=== PATIENT | female | born 1950 | race Caucasian/White ===

== ENCOUNTER 2016-11-22 12:40 | Emergency (ER) | payer OTHER ==
[~2016-11-22] VITALS: Ht 177.8 cm; Wt 89.1 kg
[2016-11-22 14:14] VITALS: BP 153/92
== END 2016-11-22 14:14 | disposition home or self-care (01) ==
LOC: EME 12:40
PROC: 0HCNXZZ Extirpation of Matter from Left Foot Skin, External Approach (ICD-10-PCS; principal; 2016-11-22)
DX: S91.342A Puncture wound with foreign body, left foot, initial encounter (principal); W22.8XXA Striking against or struck by other objects, initial encounter; W25.XXXA Contact with sharp glass, initial encounter; W45.8XXA Other foreign body or object entering through skin, initial encounter; Y93.E6 Activity, residential relocation
CPT/HCPCS: 73630; 99281; 99283

== ENCOUNTER 2017-04-14 22:39 | Emergency (ER) | payer OTHER ==
[~2017-04-14] VITALS: Ht 175.3 cm; Wt 89.0 kg
[2017-04-14 23:52] LABS: HEMATOCRIT 42.2 % (36.0-46.0); HEMOGLOBIN 14.3 G/DL (11.9-15.5); MCH 29.8 PG (29.0-34.0); MCHC 33.9 G/DL (30.0-36.0); MCV 87.9 FL (83-99); PLATELET COUNT 160 K/uL (156-360); RBC DIS.WIDTH-CV 12.8 % (11.8-14.6); RBC DIS.WIDTH-SD 41.3 % (39-53); WHITE BLOOD COUNT 5.3 K/uL (4.1-10.2)
[2017-04-15 00:13] LABS: CHLORIDE 103 mEq/L (99-109); POTASSIUM 4.1 mEq/L (3.7-5.4); SODIUM 136 mEq/L (136-147)
[2017-04-15 00:15] LABS: GLUCOSE 114 mg/dL (70-99)
[2017-04-15 00:19] LABS: CREATININE 0.8 mg/dL (0.6-1.3); GFR ESTIMATE (CALCULATED) > 59 mL/min/
[2017-04-15 00:20] LABS: UREA NITROGEN (BUN) 16 mg/dL (9-23)
[2017-04-15 03:59] LABS: ALBUMIN 4.6 g/dL (3.2-4.8)
[2017-04-15 04:02] LABS: TOTAL PROTEIN 7.1 g/dL (6.4-8.3)
[2017-04-15 04:03] LABS: TOTAL BILIRUBIN 0.3 mg/dL (0.0-1.0)
[2017-04-15 04:04] LABS: ALKALINE PHOSPHATASE 63 IU/L (3-129)
[2017-04-15 04:07] LABS: AST (GOT) 33 IU/L (2-34); DIRECT BILIRUBIN 0.1 mg/dL (0.0-0.3)
[2017-04-15 04:08] LABS: ALT (GPT) 74 IU/L (3-49); LIPASE 69 U/L (1.0-51.0)
[2017-04-15] MEDS ORDERED: TAMIFLU75 MG PO (04:48)
[2017-04-15] MEDS ORDERED: ZOFRAN4 MG PO (04:48)
[2017-04-15] MEDS ORDERED: SUDAFED 12-HOU120 MG PO (04:48)
[2017-04-15 06:11] VITALS: BP 116/61
== END 2017-04-15 06:11 | disposition home or self-care (01) ==
LOC: EME 22:39
PROVIDERS: Emergency Medicine
DX: J10.1 Influenza due to other identified influenza virus with other respiratory manifestations (principal); E86.0 Dehydration; R11.0 Nausea; I10 Essential (primary) hypertension; E03.9 Hypothyroidism, unspecified
CPT/HCPCS: 71046; 80048; 80076; 83690; 85027; 87502; 87651 90; 93005; 94640; 99281; 99284; J1885; J2405; J7030